=== PATIENT | male | born 1995 | race Caucasian/White ===

== ENCOUNTER 2017-04-12 13:28 | Emergency (ER) | payer SELFPAY | END 2017-04-12 14:23 | disposition left against medical advice (07) | LOC: UCEAST 13:28 | DX: R05 Cough (principal); J02.9 Acute pharyngitis, unspecified; Z53.9 Procedure and treatment not carried out, unspecified reason ==

== ENCOUNTER 2017-05-29 15:30 | Emergency (ER) | payer OTHER ==
--- NOTE | 2017-05-29 16:19 | RAD ---
Indication: Left shoulder pain. 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 There is no fracture or dislocation. No other bone or joint abnormality is noted. IMPRESSION: No fracture of the left shoulder is noted.
--- NOTE | 2017-05-29 16:30 | ED ---
Upper Extremity Pain - HPI Summary HPI Summary: 21M presents with left shoulder pain for a couple weeks. The pain is greatest over the biceps of his right arm. 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 The pain has been getting gradual worst. He denies any edema. He states he has been resting his arm and going PT and the pain continues to increase. He denies any edema. He denies any numbness or tingling. He denies any family history or personal history of blood clots. The pain radiates from left shoulder to neck and down arm. He has been using ibuprofen. He is right handed. He denies any previous injury to the area. - History of Current Complaint Chief Complaint: EDExtremityUpper Stated Complaint: LT ARM PAIN Time Seen by Provider: 05/29/17 15:46 - Allergies/Home Medications Allergies/Adverse Reactions: Allergies Allergy/AdvReac Type Severity Reaction Status Date / Time No Known Allergies Allergy Verified 05/29/17 15:35 PMH/Surg Hx/FS Hx/Imm Hx Endocrine/Hematology History: Denies: Hx Anticoagulant Therapy Cardiovascular History: Denies: Hx Myocardial Infarction Infectious Disease History: No Infectious Disease History: Denies: Traveled Outside the [place] in Last 30 Days - Family History Known Family History: Positive: Cardiac Disease - Social History Alcohol Use: Occasionally Substance Use Type: Reports: None Substance Use Comment - Amount & Last Used: unknown Smoking Status (MU): Never Smoked Tobacco Review of Systems Negative: Fever Negative: Chest Pain Negative: Shortness Of Breath Positive: Myalgia - left shoulder All Other Systems Reviewed And Are Negative: Yes Physical Exam Triage Information Reviewed: Yes Vital Signs On Initial Exam: Initial Vitals Temp Pulse Resp BP Pulse Ox 97.8 F 66 16 131/80 98 05/29/17 15:35 05/29/17 15:35 05/29/17 15:35 05/29/17 15:35 05/29/17 15:35 Vital Signs Reviewed: Yes Appearance: Positive: Well-Appearing Skin: Positive: Warm, Dry Head/Face: Positive: Normal Head/Face Inspection Eyes: Positive: Normal, Conjunctiva Clear Respiratory/Lung Sounds: Positive: Clear to Auscultation, Breath Sounds Present Cardiovascular: Positive: Normal, RRR Musculoskeletal: Positive: Limited @ - left shoulder, overhead movement, Other - tenderness left biceps groove, pos yergason and speed test, neg berman, good pulses, capillary refill<2secs, sensation gross intact Neurological: Positive: Normal Psychiatric: Positive: Normal - Marcus Coma Scale Coma Scale Total: 15 Diagnostics - Vital Signs Vital Signs Temp Pulse Resp BP Pulse Ox 05/29/17 15:35 97.8 F 66 16 131/80 98 - Laboratory Lab Statement: Any lab studies that have been ordered have been reviewed, and results considered in the medical decision making process. - Radiology shoulder Xray Interpretation: No Acute Changes Radiology Interpretation Completed By: Radiologist Course/Dx - Course Course Of Treatment: 21M presents with left shoulder pain for a couple weeks. The pain is greatest over the biceps of his right arm. 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 The pain has been getting gradual worst. He denies any edema. He states he has been resting his arm and going PT and the pain continues to increase. He denies any edema. He denies any numbness or tingling. He denies any family history or personal history of blood clots. The pain radiates from left shoulder to neck and down arm. He has been using ibuprofen. He is right handed. He denies any previous injury to the area. on exam tenderness over biceps groove, pos yergason and speed test, neg berman. xray normal. explained that likely biceps tendonitis but can not rule out rotator cuff injury so will have follow up with ortho. patient understand and agrees with plan. - Diagnoses Differential Diagnosis/HQI/PQRI: Positive: Fracture (Closed), Strain, Sprain Provider Diagnoses: Left shoulder pain Discharge - Discharge Plan Condition: Good Disposition: HOME Patient Education Materials: Tendinitis (ED) Referrals: Mauri Buckner MD [Medical Doctor] - Additional Instructions: Follow up with ortho for continued care, call office for appointment Take Tylenol or ibuprofen every 6 hours as needed for pain Apply ice, rest, elevate Follow up with athletic trainers as will benefit from PT Return to ED if develop any new or worsening symptoms
[2017-05-29 16:48] VITALS: BP 129/56
== END 2017-05-29 16:46 | disposition home or self-care (01) ==
LOC: ED 15:30
DX: M25.512 Pain in left shoulder (principal)
CPT/HCPCS: 99281